=== PATIENT | female | born 1985 | race Caucasian/White ===

== ENCOUNTER 2023-04-12 12:15 | Emergency (ER) | payer OTHER ==
[~2023-04-12] VITALS: Ht 180.3 cm; Wt 140.6 kg
[2023-04-12 12:27] VITALS: BP 167/100; PULSE 105; RESP 16; TEMP 99; O2SAT 99
[2023-04-12] MEDS ORDERED: HYDROcodone/APAP 10/325 MG 1 TAB TAB PO STA (12:53)
[2023-04-12] MEDS ORDERED: IBUPROFEN 800 MG TAB PO ONE (16:35)
[2023-04-12 17:21] VITALS: BP 153/97; PULSE 102; RESP 14; TEMP 98.8; O2SAT 99
== END 2023-04-12 17:21 | disposition home or self-care (01) ==
LOC: MED 12:15
DX: S52.024A Nondisplaced fracture of olecranon process without intraarticular extension of right ulna, initial encounter for closed fracture (principal); R03.0 Elevated blood-pressure reading, without diagnosis of hypertension; Z79.899 Other long term (current) drug therapy; W01.198A Fall on same level from slipping, tripping and stumbling with subsequent striking against other object, initial encounter; Y93.89 Activity, other specified; Y92.89 Other specified places as the place of occurrence of the external cause; Y99.8 Other external cause status
CPT/HCPCS: 29105; 73080; 99283